=== PATIENT | female | born 1990 | race Caucasian/White ===

== ENCOUNTER 2017-09-22 10:37 | Emergency (ER) | payer OTHER ==
[2017-09-22 10:45] VITALS: TEMP 97.9
[2017-09-22 11:36] VITALS: RESP 16
--- NOTE | 2017-09-22 11:40 | RAD ---
HISTORY: chest pain COMPARISON: None available. TECHNIQUE: Chest PA and lateral FINDINGS: LUNGS: Subtle patchy opacity at the right lung base ; correlate clinically for possibility of pneumonia. Please note that chest x-ray has limited sensitivity for the detection of pulmonary masses. PLEURA: No significant pleural effusion identified. No definite pneumothorax . CARDIOVASCULAR: Dual lead left-sided pacemaker. Median sternotomy wires. Heart size appears within normal limits. OSSEOUS STRUCTURES: No acute osseous abnormality identified. VISUALIZED UPPER ABDOMEN: Unremarkable. OTHER FINDINGS: None. IMPRESSION: Subtle patchy opacity at the right lung base ; correlate clinically for possibility of pneumonia.
[2017-09-22 11:50] LABS: BASO % 0.4 % (0.0-2.0); EOS # 0.2 K/uL (0.0-0.7); EOS % 1.7 % (0.0-4.0); HEMATOCRIT 36.7 % (34.0-47.0); LYMPH # 2.5 K/uL (1.0-4.3); LYMPH % 26.7 % (20.0-40.0); MEAN CORPUSCULAR HEMOGLOBIN 26.6 pg (27.0-31.0); MEAN CORPUSCULAR HGB CONC 33.3 g/dL (33.0-37.0); MEAN PLATELET VOLUME 8.2 fL (7.2-11.7); MONO # 0.8 K/uL (0.0-0.8); MONO % 8.1 % (0.0-10.0); RED CELL DISTRIBUTION WIDTH 14.3 % (11.5-14.5); WHITE BLOOD COUNT 9.5 K/uL (4.8-10.8)
--- NOTE | 2017-09-22 11:53 | C.PDOC ---
History Of Present Illness 27 year old female, with a history of open heart surgery at 1 years old and a pacemaker placed by land clearer 2 years ago, presents to the ED with complaints of generalized weakness, chills and sweats to the back of her neck when she awoke at 6am today. Patient called her land clearer this morning and was instructed to come to ED for evaluation. Patient denies chest pain, shortness of breath, or other complaints at this time. Patient's land clearer:Dr. Valenzuela Time Seen by Provider: 09/22/17 11:03 Chief Complaint (Nursing): Medical Clearance History Per: Patient History/Exam Limitations: no limitations Onset/Duration Of Symptoms: Hrs Current Symptoms Are (Timing): Better (patient notes slight improvement in ED) Recent travel outside of the [place]: No Additional History Per: Prior Records Past Medical History Reviewed: Historical Data, Nursing Documentation, Vital Signs Vital Signs: Last Vital Signs Temp 97.9 F 09/22/17 10:44 Pulse 85 09/22/17 11:10 Resp 16 09/22/17 11:10 BP 101/72 09/22/17 11:10 Pulse Ox 100 09/22/17 13:49 - Medical History PMH: Cardia Arrhythmia, Hiatal Hernia Surgical History: Pacemaker (09/01/2014) Family History: States: Unknown Family Hx - Social History Hx Tobacco Use: No Hx Alcohol Use: No Hx Substance Use: No - Immunization History Hx Influenza Vaccination: No (CONTRAINDICATION) Hx Pneumococcal Vaccination: No Review Of Systems Constitutional: Positive for: Chills, Weakness. Negative for: Fever Cardiovascular: Negative for: Chest Pain, Palpitations Respiratory: Negative for: Cough, Shortness of Breath Gastrointestinal: Negative for: Nausea, Vomiting, Abdominal Pain Neurological: Negative for: Weakness, Numbness Physical Exam - Physical Exam Appears: Non-toxic, No Acute Distress Skin: Warm, Dry, No Rash Head: Atraumatic, Normacephalic, No Tenderness Eye(s): bilateral: Normal Inspection, PERRL, EOMI Oral Mucosa: Moist Neck: Supple Chest: Symmetrical, No Deformity Cardiovascular: Rhythm Regular, No Murmur Respiratory: No Rales, No Rhonchi, No Stridor, Other (clear to auscultation bilaterally ) Gastrointestinal/Abdominal: Soft, No Tenderness, No Distention, No Guarding, No Rebound Extremity: Normal ROM, No Tenderness Neurological/Psych: Oriented x3 ED Course And Treatment - Laboratory Results Result Diagrams: 09/22/17 11:45 09/22/17 11:45 ECG: Interpreted By Me, Viewed By Me Interpretation Of ECG: Atrial paced rhythm at 73 bpm with good capture. Rate From EC O2 Sat by Pulse Oximetry: 100 (RA) Pulse Ox Interpretation: Normal - Radiology CXR: Viewed By Me, Read By Radiologist Progress Note: EKG, UA, CXR, D-Dimer, and blood work were ordered. Case discussed with Dr. Sweeney and agrees patient can be discharged home and to follow up in a few days with Dr. Sweeney. Patient's diagnosis is Pneumonia and patient will be started on Zithromycin. Disposition Discussed With : mame Doctor Will See Patient In The: Office Counseled Patient/Family Regarding: Studies Performed, Diagnosis, Need For Followup, Rx Given - Disposition Disposition: HOME/ ROUTINE Disposition Time: 13:47 Condition: IMPROVED Additional Instructions: follow up with your land clearer in two days, see him in the office take medications as prescribed return to hospital if symptoms worsens or progress Prescriptions: Azithromycin [Zithromax] 250 mg PO DAILY #4 tab Instructions: Community Acquired Pneumonia (DC) Forms: [facility] ([place]), General Discharge Instructions - Clinical Impression Clinical Impression: Pneumonia - Scribe Statement The provider has reviewed the documentation as recorded by the Scribe Yessy Saravia All medical record entries made by the Scribe were at my direction and personally dictated by me. I have reviewed the chart and agree that the record accurately reflects my personal performance of the history, physical exam, medical decision making, and the department course for this patient. I have also personally directed, reviewed, and agree with the discharge instructions and disposition.
[2017-09-22 11:59] LABS: URINE BILIRUBIN NEGATIVE (NEGATIVE); URINE BLOOD NEGATIVE (NEGATIVE); URINE COLOR Straw (YELLOW); URINE GLUCOSE (UA) NORMAL (Normal); URINE KETONE NEGATIVE (NEGATIVE); URINE LEUKOCYTE ESTERASE NEG Leu/uL (Negative); URINE PROTEIN NEGATIVE (NEGATIVE); URINE UROBILINOGEN NORMAL mg/dL (0.2-1.0); WBC URINE < 1 /hpf (0-5)
[2017-09-22 12:11] LABS: ALKALINE PHOSPHATASE 71 U/L (38-126); ALT/SGPT 37 U/L (9-52); AST/SGOT 26 U/L (14-36); BILIRUBIN,TOTAL 0.3 mg/dL (0.2-1.3); BLOOD UREA NITROGEN 8 mg/dL (7-17); CALCIUM 8.6 mg/dl (8.6-10.4); CARBON DIOXIDE 24 mmol/L (22-30); CHLORIDE 104 mmol/L (98-107); GFR AFRICAN-AMERICAN > 60; GLUCOSE,RANDOM 87 mg/dL (65-105); POTASSIUM 4.3 mmol/L (3.6-5.2); SODIUM 137 mmol/L (132-148); TOTAL PROTEIN 8.8 g/dL (6.3-8.3)
[2017-09-22 12:37] LABS: ALB/GLOB RATIO 0.9 (1.0-2.1)
[2017-09-22 14:02] VITALS: BP 101/64; PULSE 86; O2SAT 98
--- NOTE | 2017-09-24 08:41 | CARD ---
APPROVED REPORT EKG Measurement Heart [id number] [place] 176P [id number] <Conclusion> Atrial-paced rhythm T wave abnormality, consider anterolateral ischemia Abnormal ECG
== END 2017-09-22 13:54 | disposition home or self-care (01) ==
LOC: C.ER 10:37
DX: J18.9 Pneumonia, unspecified organism (principal)

== ENCOUNTER 2018-06-02 18:30 | Day surgery (SDC) | payer OTHER ==
--- NOTE | 2018-06-02 19:23 | C.PDOC ---
History Of Present Illness 27 year old female presents to the ED c/o persistent vaginal bleeding for 1 week. Patient is s/p US with Dr. Vides, the last one was today patient states "no heartbeat both times". Patient states increased lower abdominal cramping. Patient is 8 weeks . Patient denies fever, chills, nausea, vomit, UTI symptoms. PERSIST VB X 1 WEEK. PS S/P US X [address] VIDES, LAST ONE TODAY "NO HEARTBEAT BOTH TIMES" PER PT. INCR LOWER CRAMPING. NO FEVER, UTI SX, NV. EGA 9 WKS EXAM MILD DIST NONTOXIC ABD MILD PELVIC TEND SOFT NO R/G REMAINDER NEG Time Seen by Provider: 06/02/18 19:06 Chief Complaint (Nursing): Female Genitourinary History Per: Patient History/Exam Limitations: no limitations Onset/Duration Of Symptoms: Days Current Symptoms Are (Timing): Still Present Severity: Mild Quality Of Discomfort: Cramping Associated Symptoms: denies: Fever, Nausea, Vomiting, Diarrhea Alleviating Factors: None Recent travel outside of the [place]: No Additional History Per: Patient Abnormal Vaginal Bleeding: Yes Last Menstral Period: 03/27/18 Past Medical History Reviewed: Historical Data, Nursing Documentation, Vital Signs Vital Signs: Last Vital Signs Temp 98.1 F 06/02/18 18:45 Pulse 85 06/02/18 18:45 Resp 16 06/02/18 18:45 BP 111/78 06/02/18 18:45 Pulse Ox 98 06/02/18 19:35 - Medical History PMH: Cardia Arrhythmia, Hiatal Hernia Denies: Chronic Kidney Disease Surgical History: Pacemaker (09/01/2014) Family History: States: Unknown Family Hx - Social History Hx Tobacco Use: No Hx Alcohol Use: No Hx Substance Use: No - Immunization History Hx Influenza Vaccination: No (CONTRAINDICATION) Hx Pneumococcal Vaccination: No Review Of Systems Constitutional: Negative for: Fever, Chills Cardiovascular: Negative for: Chest Pain, Palpitations Respiratory: Negative for: Cough, Shortness of Breath Gastrointestinal: Positive for: Abdominal Pain. Negative for: Nausea, Vomiting Genitourinary: Positive for: Vaginal Bleeding. Negative for: Dysuria, Hematuria Musculoskeletal: Negative for: Back Pain Neurological: Negative for: Weakness, Numbness Physical Exam - Physical Exam Appears: Non-toxic, In Acute Distress Skin: Normal Color, Warm, Dry Head: Atraumatic, Normacephalic Eye(s): bilateral: Normal Inspection Neck: Normal ROM, Supple Chest: Symmetrical Cardiovascular: Rhythm Regular Respiratory: Normal Breath Sounds, No Rales, No Rhonchi, No Wheezing Gastrointestinal/Abdominal: Soft, Tenderness (mild pelvic), No Guarding, No Rebound Extremity: Normal ROM, No Tenderness, No Swelling Neurological/Psych: Oriented x3, Normal Speech, Normal Cognition Gait: Steady ED Course And Treatment - Laboratory Results Result Diagrams: 06/02/18 19:31 06/02/18 19:31 O2 Sat by Pulse Oximetry: 98 (On RA) Pulse Ox Interpretation: Normal Progress - Re-Evaluation Re-evaluation Note: 06/02/18 19:23 D/W DR VIDES, LABS US 06/02/18 19:[address] vides, CANCEL US WILL ADMIT FOR D&C - Data Reviewed Data Reviewed: Lab, Diagnostic imaging, Old records Medical Decision Making Medical Decision Making: Impression: persistent vaginal bleeding, 9 weeks Plan: * Labs * Toradol 30 mg IVP * UA * Pelvic US Disposition Counseled Patient/Family Regarding: Studies Performed, Diagnosis - Disposition Disposition: HOSPITALIZED Disposition Time: 19:55 Condition: STABLE Forms: [facility] (Turkish) - POA Present On Arrival: None - Clinical Impression Clinical Impression: Incomplete miscarriage - Scribe Statement The provider has reviewed the documentation as recorded by the Scribe Karel Goins All medical record entries made by the Scribe were at my direction and personally dictated by me. I have reviewed the chart and agree that the record accurately reflects my personal performance of the history, physical exam, medical decision making, and the department course for this patient. I have also personally directed, reviewed, and agree with the discharge instructions and disposition. Decision To Admit - Pt Status Changed To: Hospital Disposition Of: SDS- Endo,OR,Cath,IR - . Bed Request Type: Same Day Surgery Admitting Physician: Sawyer Vides Patient Diagnosis: Incomplete miscarriage
[2018-06-02 19:39] LABS: BASO % 0.4 % (0.0-2.0); EOS # 0.1 K/uL (0.0-0.7); EOS % 1.2 % (0.0-4.0); HEMOGLOBIN 12.3 g/dL (11.0-16.0); LYMPH # 2.5 K/uL (1.0-4.3); LYMPH % 21.9 % (20.0-40.0); MEAN CORPUSCULAR HEMOGLOBIN 25.5 pg (27.0-31.0); MEAN CORPUSCULAR HGB CONC 32.3 g/dL (33.0-37.0); MEAN PLATELET VOLUME 8.4 fL (7.2-11.7); MONO # 0.8 K/uL (0.0-0.8); MONO % 7.3 % (0.0-10.0); NEUT % 69.2 % (50.0-75.0); NRBC % 0.1 % (0.0-2.0); RBC 4.81 Mil/uL (3.80-5.20); RED CELL DISTRIBUTION WIDTH 16.4 % (11.5-14.5); WHITE BLOOD COUNT 11.5 K/uL (4.8-10.8)
[2018-06-02 19:41] LABS: SQUAMOUS EPITHIAL < 1 /hpf (0-5); URINE BACTERIA RARE (<OCC); URINE BILIRUBIN NEGATIVE (NEGATIVE); URINE BLOOD 3+ (NEGATIVE); URINE CLARITY Clear (Clear); URINE GLUCOSE (UA) NORMAL (Normal); URINE LEUKOCYTE ESTERASE 1+ Leu/uL (Negative); URINE PROTEIN NEGATIVE (NEGATIVE); URINE UROBILINOGEN NORMAL mg/dL (0.2-1.0)
[2018-06-02 19:42] LABS: URINE COLOR LIGHT RED (YELLOW)
[2018-06-02 19:52] LABS: ALB/GLOB RATIO 1.2 (1.0-2.1); ALBUMIN 4.4 g/dL (3.5-5.0); ALT/SGPT 22 U/L (9-52); AST/SGOT 23 U/L (14-36); BLOOD UREA NITROGEN 5 mg/dL (7-17); CALCIUM 9.3 mg/dl (8.6-10.4); GFR AFRICAN-AMERICAN > 60; GFR NON-AFRICAN AMERICAN > 60
--- NOTE | 2018-06-02 20:54 | CP.PCM.HP ---
History of Present Illness - History of Present Illness History of Present Illness: 27 yr lmp 03/26/18 cam with c/o vaginal bleeding and pain startd in the evening. pt had sonogram x 2 showning no fh. obhx 2 x pmh pacemaker ed pnv all nkda psh de soch de pelvic ex ex gen blo cervix dilated, 1 c, ut 8 we,n o pal mas Present on Admission - Present on Admission Any Indicators Present on Admission: No History of DVT/PE: No History of Uncontrolled Diabetes: No Urinary Catheter: No Decubitus Ulcer Present: No Past Patient History - Past Social History Smoking Status: Never Smoked - CARDIAC Hx Cardia Arrhythmia: Yes Hx Pacemaker: Yes (09/01/2014) - PULMONARY Hx Respiratory Disorders: No - NEUROLOGICAL Hx Neurological Disorder: No - HEENT Hx HEENT Problems: No - RENAL Hx Chronic Kidney Disease: No - ENDOCRINE/METABOLIC Hx Endocrine Disorders: No - HEMATOLOGICAL/ONCOLOGICAL Hx Blood Disorders: No - INTEGUMENTARY Hx Dermatological Problems: No - MUSCULOSKELETAL/RHEUMATOLOGICAL Hx Musculoskeletal Disorders: No - GASTROINTESTINAL Hx Gastrointestinal Disorders: Yes (SEE COMMENT) - GENITOURINARY/GYNECOLOGICAL Hx Genitourinary Disorders: No - PSYCHIATRIC Hx Substance Use: No - SURGICAL HISTORY Hx Surgeries: Yes (SEE COMMENT) 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1) Other/Comment: PACEMAKER 09/01/2014; UMBILICAL HERNIA SX - ANESTHESIA Hx Anesthesia: Yes Hx Anesthesia Reactions: No Meds Allergies/Adverse Reactions: Allergies Allergy/AdvReac Type Severity Reaction Status Date / Time No Known Allergies Allergy Verified 06/02/18 18:47 Physical Exam - Exam Speculum exam: Vaginal Bleeding Bimanual exam: Uterine Tenderness Results - Vital Signs Recent Vital Signs: Last Vital Signs Temp 98.1 F 06/02/18 18:45 Pulse 70 06/02/18 20:37 Resp 18 06/02/18 20:37 BP 100/63 06/02/18 20:37 Pulse Ox 100 06/02/18 20:37 - Labs Result Diagrams: 06/02/18 19:31 06/02/18 19:31 Labs: Laboratory Results - last 24 hr 06/02/18 06/02/18 06/02/18 19:17 19:31 19:31 WBC 11.5 H RBC 4.81 Hgb 12.3 Hct 38.0 MCV 79.0 L MCH 25.5 L MCHC 32.3 L RDW 16.4 H Plt Count 404 H MPV 8.4 Neut % (Auto) 69.2 Lymph % (Auto) 21.9 [place] % (Auto) 7.3 Eos % (Auto) 1.2 Baso % (Auto) 0.4 Neut # (Auto) 8.0 H Lymph # (Auto) 2.5 [place] # (Auto) 0.8 Eos # (Auto) 0.1 Baso # (Auto) 0.0 Sodium 140 Potassium 3.9 Chloride 104 Carbon Dioxide 24 Anion Gap 15 BUN 5 L Creatinine 0.5 L Est GFR ( Amer) > 60 Est GFR (Non-Af Amer) > 60 Random Glucose 97 Calcium 9.3 Total Bilirubin 0.4 AST 23 ALT 22 Alkaline Phosphatase 82 Total Protein 8.0 Albumin 4.4 Globulin 3.6 Albumin/Globulin Ratio 1.2 Beta HCG, Quant 5675.00 Urine Color Light red Urine Clarity Clear Urine pH 6.0 Ur Specific [place] 1.002 L Urine Protein Negative Urine Glucose (UA) Normal Urine Ketones Negative Urine Blood 3+ H Urine Nitrate Negative Urine Bilirubin Negative Urine Urobilinogen Normal Ur Leukocyte Esterase 1+ H Urine WBC (Auto) 7 H Urine RBC (Auto) 28 H Ur Squamous Epith Cells < 1 Urine Bacteria Rare Blood Type Antibody Screen 06/02/18 19:31 WBC RBC Hgb Hct MCV MCH MCHC RDW Plt Count MPV Neut % (Auto) Lymph % (Auto) [place] % (Auto) Eos % (Auto) Baso % (Auto) Neut # (Auto) Lymph # (Auto) [place] # (Auto) Eos # (Auto) Baso # (Auto) Sodium Potassium Chloride Carbon Dioxide Anion Gap BUN Creatinine Est GFR ( Amer) Est GFR (Non-Af Amer) Random Glucose Calcium Total Bilirubin AST ALT Alkaline Phosphatase Total Protein Albumin Globulin Albumin/Globulin Ratio Beta HCG, Quant Urine Color Urine Clarity Urine pH Ur Specific [place] Urine Protein Urine Glucose (UA) Urine Ketones Urine Blood Urine Nitrate Urine Bilirubin Urine Urobilinogen Ur Leukocyte Esterase Urine WBC (Auto) Urine RBC (Auto) Ur Squamous Epith Cells Urine Bacteria Blood Type O POSITIVE Antibody Screen Negative Assessment & Plan - Assessment and Plan (Free Text) Assessment: 27 yr at 8weekincomplete Plan: plan admit to quartz orientator for suction d&c npo/ivflabs or aware ramírez aware antibiotic informed consent signed - Date & Time Date: 06/02/18 Time: 21:00
[2018-06-02] MEDS ORDERED: HYDROmorphone 0.5 mg/0.5 ml ISec IVP PRN (21:21)
[2018-06-02] MEDS ORDERED: Dexamethasone 4 mg/1 ml IVP PRN (21:21)
[2018-06-02] MEDS ORDERED: Propofol 10 mg/ml Inj (20 ML) ONE (21:31)
[2018-06-02] MEDS ORDERED: Oxytocin 10 Units/ml Inj ONE (21:49)
[2018-06-02] MEDS ORDERED: ePHEDrine 50 mg/ml Inj ONE (21:55)
[2018-06-02] MEDS ORDERED: Lactated Ringer's 1,000 ML IV ONE (22:45)
[2018-06-02 23:10] VITALS: TEMP 97.8
[2018-06-03 01:14] VITALS: BP 103/70; PULSE 70; RESP 20; O2SAT 99
--- NOTE | 2018-06-14 06:45 | OP ---
Copied To: Sawyer Vides MD Attending MD: Sawyer Vides MD PROCEDURE DATE: 06/02/2018 PREOPERATIVE DIAGNOSIS: A 27-year-old 3 para 2 with incomplete . POSTOPERATIVE DIAGNOSIS: A 27-year-old 3 para 2 with incomplete . PROCEDURE: Suction dilatation and curettage. SURGEON: Sawyer Vides MD. WELDER SETTER ELECTRON BEAM MACHINE: None. ANESTHESIA: General IV sedation. ANESTHESIOLOGIST: Dr. Alicia. COMPLICATIONS: None. DESCRIPTION OF PROCEDURE: After informed consent was obtained, the patient was brought to the operating room, placed on the table where general anesthesia was given. Once the anesthesia was given, the patient was prepped and draped in normal sterile fashion. Examination under anesthesia found uterus to be 8 week size. No pelvic or adnexal masses. Anterior lip of the cervix was grasped with a tenaculum. Gentle dilatation of the cervix was done. Then the suction done, 6-Danish and 7-Danish was used. Some product of the tissue was sent for chromosome pathology. sharp curettage was done suction was used again. After that, the tenaculum was taken out. The patient tolerated the procedure well. Lap, sponge, and instrument counts were correct x2. Sawyer Vides MD
== END 2018-06-03 00:10 | disposition home or self-care (01) ==
LOC: C.ER 18:30 → C.SDS 20:11 → C.5S 21:42 → C.SDS 06-03 00:10
PROVIDERS: ATTEND Obstetrics & Gynecology
DX: O03.4 Incomplete spontaneous abortion without complication (principal); Z3A.09 9 weeks gestation of pregnancy
CPT/HCPCS: 59820; 80053; 81001; 84702; 85025; 86850; 86900; 88233; 88262; 88305; 96374; 99285; J1100; J1885; J2001; J2405; J2590; J2704; J3010; J7120

== ENCOUNTER 2018-08-22 01:59 | Emergency (ER) | payer OTHER ==
--- NOTE | 2018-08-22 02:27 | C.PDOC ---
History Of Present Illness 27 year old female patient with PMHx of open heart surgery due to "hole in heart" at 1 years old and a pacemaker in 2013 presents to the ER c/o mid-sternal chest pain that radiates to the left arm for x1 hour. Patient feels it is as sociated with stress at home and admits to feeling anxious. Also notes she has had similar episodes in the past which self resolved. Patient denies nausea, vomiting, headache, leg swelling, travel, rash, fever, cough and abdominal pain. <Federica Long - Last Filed: 08/25/18 13:43> <Disha Rob - Last Filed: 08/22/18 12:07> History Per: Patient History/Exam Limitations: no limitations Onset/Duration Of Symptoms: Hrs Current Symptoms Are (Timing): Still Present <Federica Long - Last Filed: 08/25/18 13:43> Time Seen by Provider: 08/22/18 02:10 Chief Complaint (Nursing): Chest Pain Past Medical History Vital Signs: Last Vital Signs Temp 97.9 F 08/22/18 04:25 Pulse 80 08/22/18 03:57 Resp 16 08/22/18 03:57 BP 101/65 08/22/18 03:57 Pulse Ox 100 08/22/18 04:58 <Disha Rob - Last Filed: 08/22/18 12:07> Reviewed: Historical Data, Nursing Documentation, Vital Signs Vital Signs: Last Vital Signs Temp 98.2 F 08/22/18 02:04 Pulse 88 08/22/18 02:15 Resp 22 08/22/18 02:04 BP 106/65 08/22/18 02:15 Pulse Ox 100 08/22/18 02:04 - Medical History PMH: Cardia Arrhythmia, Hiatal Hernia Surgical History: Pacemaker (09/01/2014) Family History: States: Unknown Family Hx - Social History Hx Tobacco Use: No Hx Alcohol Use: No Hx Substance Use: No - Immunization History Hx Influenza Vaccination: No (CONTRAINDICATION) Hx Pneumococcal Vaccination: No <Federica Long - Last Filed: 08/25/18 13:43> Review Of Systems Except As Marked, All Systems Reviewed And Found Negative. Constitutional: Negative for: Fever Cardiovascular: Positive for: Chest Pain (mid-sternal) Respiratory: Negative for: Cough Gastrointestinal: Negative for: Nausea, Vomiting, Abdominal Pain Musculoskeletal: Positive for: Arm Pain (left; from mid-sternal chest pain) <Federica Long - Last Filed: 08/25/18 13:43> Physical Exam - Physical Exam Appears: Well, Non-toxic, No Acute Distress, Other (anxious) Skin: Normal Color, Warm, Dry Head: Atraumatic, Normacephalic Eye(s): bilateral: Normal Inspection, EOMI Nose: Normal Oral Mucosa: Moist Neck: Normal ROM, Supple Chest: Symmetrical, No Deformity Cardiovascular: Rhythm Regular Respiratory: Normal Breath Sounds, No Accessory Muscle Use Gastrointestinal/Abdominal: Soft, No Tenderness Extremity: Normal ROM (x4), No Tenderness, Capillary Refill (<2 sec) Neurological/Psych: Oriented x3, Normal Speech Gait: Steady <Federica Long - Last Filed: 08/25/18 13:43> ED Course And Treatment - Laboratory Results Result Diagrams: 08/22/18 02:55 08/22/18 02:55 <Disha Rob - Last Filed: 08/22/18 12:07> - Laboratory Results Result Diagrams: 08/22/18 02:55 08/22/18 02:55 ECG: Interpreted By Me, Viewed By Me ECG Rhythm: A Paced ECG Interpretation: No Changes From Prior (09/2014) Rate From EC O2 Sat by Pulse Oximetry: 100 (RA) Pulse Ox Interpretation: Normal - Radiology CXR: Interpreted by Me, Viewed By Me CXR Interpretation: Yes: No Acute Disease Progress Note: plans: -- EKG. -- chem labs. -- blood work. -- IV fluids. -- CXR. -- HCG. -- UA. Reassess: Patient is resting comfortably, no shortness of breath. Chest pain improved. PT notes she feels better. Pulse ox 98%. Afebrile. No si/hi. Patient is being discharged home and is being advised to follow up with physician in 1-2 days. <Federica Long - Last Filed: 08/25/18 13:43> Medical Decision Making Medical Decision Makin pt left message to call ed re cxr findings [id number] PT CALLED BACK, MADE AWARE OF PATCHY INFILTRATE ON LEFT CHEST ON XRAY. RX FOR Z-SEVERIANO CALLED INTO [facility] ON [address] PER PT REQUEST. <Disha Rob - Last Filed: 08/22/18 12:07> Disposition <Disha Rob - Last Filed: 08/22/18 12:07> - Disposition Disposition Time: 04:17 <Federica Long - Last Filed: 08/25/18 13:43> - Disposition Referrals: [facility] [Outside] Disposition: HOME/ ROUTINE Condition: STABLE Additional Instructions: Follow up with the foxing painter in 1-2 days. Return to ER if symptoms persist or worsen. Instructions: Chest Pain (DC) Forms: [employer] (French) - Clinical Impression Clinical Impression: Chest pain - PA / SPOT WELDER LINE / Resident Statement MD/ has reviewed & agrees with the documentation as recorded. - Scribe Statement The provider has reviewed the documentation as recorded by the Laineibchantel Bedolla Do All medical record entries made by the Scribe were at my direction and personally dictated by me. I have reviewed the chart and agree that the record accurately reflects my personal performance of the history, physical exam, medical decision making, and the department course for this patient. I have also personally directed, reviewed, and agree with the discharge instructions and disposition. <Federica Long - Last Filed: 08/25/18 13:43>
[2018-08-22] MEDS ORDERED: Sodium Chloride 0.9% 1,000 ML IV ONE (02:39)
[2018-08-22] MEDS ORDERED: Sodium Chloride 0.9% 1,000 ML ONE (02:51)
[2018-08-22 02:59] LABS: BASO % 0.4 % (0.0-2.0); EOS # 0.2 K/uL (0.0-0.7); EOS % 2.2 % (0.0-4.0); HEMOGLOBIN 12.2 g/dL (11.0-16.0); LYMPH # 2.9 K/uL (1.0-4.3); LYMPH % 28.5 % (20.0-40.0); MEAN CELL VOLUME 79.6 fL (81.0-99.0); MEAN CORPUSCULAR HEMOGLOBIN 26.1 pg (27.0-31.0); MEAN CORPUSCULAR HGB CONC 32.8 g/dL (33.0-37.0); MEAN PLATELET VOLUME 8.8 fL (7.2-11.7); MONO # 1.1 K/uL (0.0-0.8); MONO % 10.4 % (0.0-10.0); NEUT % 58.5 % (50.0-75.0); NRBC % 0.1 % (0.0-2.0); RBC 4.66 Mil/uL (3.80-5.20); RED CELL DISTRIBUTION WIDTH 14.3 % (11.5-14.5); WHITE BLOOD COUNT 10.3 K/uL (4.8-10.8)
[2018-08-22 03:01] LABS: URINE BACTERIA RARE (<OCC); URINE BILIRUBIN NEGATIVE (NEGATIVE); URINE BLOOD NEGATIVE (NEGATIVE); URINE CLARITY Clear (Clear); URINE COLOR Straw (YELLOW); URINE GLUCOSE (UA) NORMAL (Normal); URINE LEUKOCYTE ESTERASE NEG Leu/uL (Negative); URINE PROTEIN NEGATIVE (NEGATIVE); URINE UROBILINOGEN NORMAL mg/dL (0.2-1.0)
[2018-08-22 03:05] LABS: HCG,QUALITATIVE URINE NEGATIVE (NEGATIVE)
[2018-08-22 03:06] LABS: ALB/GLOB RATIO 1.3 (1.0-2.1); ALBUMIN 4.5 g/dL (3.5-5.0); ALT/SGPT 19 U/L (9-52); AST/SGOT 20 U/L (14-36); BLOOD UREA NITROGEN 14 mg/dL (7-17); CALCIUM 9.3 mg/dl (8.6-10.4); GFR NON-AFRICAN AMERICAN > 60
[2018-08-22 03:18] LABS: CK-MB 1.29 ng/mL (0.0-3.38)
[2018-08-22 03:59] VITALS: BP 101/65; PULSE 80; RESP 16
[2018-08-22 04:19] VITALS: O2SAT 100
[2018-08-22 04:25] VITALS: TEMP 97.9
--- NOTE | 2018-08-22 08:52 | RAD ---
HISTORY: SOB COMPARISON: Chest x-ray performed 09/22/17 TECHNIQUE: Chest PA and lateral FINDINGS: LUNGS: Mild patchy left base infiltrate. Please note that chest x-ray has limited sensitivity for the detection of pulmonary masses. PLEURA: No significant pleural effusion identified. No definite pneumothorax . CARDIOVASCULAR: Dual lead left-sided pacemaker. Heart size appears top normal. Median sternotomy wires. OSSEOUS STRUCTURES: No acute osseous abnormality identified. VISUALIZED UPPER ABDOMEN: Unremarkable. OTHER FINDINGS: None. IMPRESSION: Mild patchy left base infiltrate. Study marked for PA review.
--- NOTE | 2018-08-23 23:05 | CARD ---
APPROVED REPORT Date of service: 08/22/2018 EKG Measurement Heart [id number] 170P [id number] <Conclusion> Atrial-paced rhythm Nonspecific T wave abnormality Abnormal ECG
== END 2018-08-22 04:29 | disposition home or self-care (01) ==
LOC: C.ER 01:59
DX: R07.9 Chest pain, unspecified (principal)
CPT/HCPCS: 71046; 80053; 81001; 82550; 82553; 84484; 84703; 85025; 85378; 93005; 99284; J7030

== ENCOUNTER 2019-01-13 06:17 | Emergency (ER) | payer OTHER | END 2019-01-13 08:10 | disposition home or self-care (01) | LOC: C.ER 06:17 ==